=== PATIENT | female | born 1970 | race Two or more races ===

== ENCOUNTER 2017-12-10 00:03 | Emergency (ER) | payer OTHER ==
[~2017-12-10] VITALS: Ht 152.4 cm; Wt 61.2 kg
--- NOTE | 2017-12-10 00:38 | Emergency Room Report ---
History of Present Illness General Chief Complaint: Lower Extremity Injury Source: Patient Present Illness HPI At 10:30 tonight the patient ran her knee into the back of her patient's recliner chair while she was working. 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 She was trying to get to the call light. She heard a "crack" when she hit and had pain in her knee that extends up to her hip and also down into her ankle. She was able to limp. Her daughter brought her to the hospital. She is not taking any medication however placed an ice pack on to the knee. She denies previous injuries to her knees. Pain is rated at 10/10, sharp aching. Worse when she tries to bend the knee. No fevers, LOC, rashes, arthritis, dysuria, cough, chest pain, NVD. Allergies: Coded Allergies: PENICILLINS (Verified Allergy, Unknown, 12/10/17) Patient History Past Medical History: see triage record Social History: Denies: smoking, alcohol use Social History Narrative [employer] Last Menstrual Period: november 24 Now: No Reviewed Nursing Documentation: PMH: Agreed; PSxH: Agreed Nursing Documentation-PMH Past Medical History: No Stated History Review of Systems All Other Systems: negative except mentioned in HPI Physical Exam Vital Signs Date Time Temp Pulse Resp B/P (MAP) Pulse Ox O2 Delivery O2 Flow Rate FiO2 12/10/17 00:09 98.1 79 18 110/69 98 Room Air 98.1 Sp02 EP Interpretation: reviewed, normal General Appearance: well appearing, no apparent distress, GCS 15 Head: normocephalic, atraumatic Eyes: bilateral eye normal inspection, bilateral eye PERRL ENT: hearing grossly normal, normal voice Neck: full range of motion, supple Respiratory: chest non-tender, lungs clear, no respiratory distress, speaking full sentences Cardiovascular #1: regular rate, rhythm Cardiovascular #2: 2+ radial (L), 2+ dorsalis pedis (L) Gastrointestinal: normal inspection, non tender Musculoskeletal: back normal, pelvis stable, other - bilateral knee lateral ligament laxity (same both sides). Unable to flex knee due to pain. Able to lift foot. No significant effusion. TTP patella. Also posterior thigh tenderness. PROM of hip without pain. No drawer, but anxious with exam. Neurologic: alert, motor strength/tone normal, sensory intact, speech normal Psychiatric: anxious Skin: no rash Medical Decision Making Diagnostic Impression: Primary Impression: Contusion of left knee Qualified Codes: S80.02XA - Contusion of left knee, initial encounter ER Course Patient presents after trauma to L knee. DDx: fx, contusion, sprain. Pain radiates throughout leg and to hip, though clinically, hip not fractured. Xrays and analgesia indicated. Xrays without fracture. Immobilizer placed by tech. Position excellent, though initially too tight and adjusted by me. Neurovasc normal post placement as examined by me. Patient reluctant to weight bear or ambulate. Able to ambulate with assistance from daughter. Patient stable for outpatient observation and treatment. Other X-Ray Diagnostic Results Other X-Ray Diagnostic Results : X-Ray ordered: L knee # of Views/Limited Vs Complete: 3 View Indication: Pain EP Interpretation: Yes Interpretation: no dislocation, no soft tissue swelling, no fractures Impression: No acute disease Electronically Signed by: Rocael Cantu MD Last Vital Signs Date Time Temp Pulse Resp B/P (MAP) Pulse Ox O2 Delivery O2 Flow Rate FiO2 12/10/17 01:55 98.1 18 110/69 98 Room Air 208.6 12/10/17 00:09 79 Status: improved Disposition: HOME, SELF-CARE Condition: Improved Scripts Methocarbamol* (ROBAXIN*) 500 Mg Tablet 500 MG PO TID, #10 TAB 0 Refills Prov: Rocael Cantu M.D. 12/10/17 Acetaminophen (Tylenol) 325 Mg Tablet 650 MG ORAL Q6H PRN for Prn Pain/Headache/Temp > 101, #30 TAB 0 Refills Prov: Rocael Cantu M.D. 12/10/17 Tramadol Hcl* (ULTRAM*) 50 Mg Tablet 50 MG ORAL Q6H PRN for For Pain, #16 TAB 0 Refills Prov: Rocael Cantu M.D. 12/10/17 Rocael Cantu M.D. Dec 10, 2017 00:38
[2017-12-10] MEDS ORDERED: traMADol 50mg tab ORAL ONE (00:45)
[2017-12-10 01:55] VITALS: BP 110/69
[2017-12-10] MEDS ORDERED: TYLENOL325 MG ORAL (01:59)
[2017-12-10] MEDS ORDERED: ROBAXIN500 MG PO (01:59)
[2017-12-10] MEDS ORDERED: TRAMADOL HCL50 MG ORAL (01:59)
--- NOTE | 2017-12-10 09:51 | Diagnostic Imaging Report ---
Indications: Trauma, twisted knee one day ago Technique: Three views of the left knee Comparison: None Findings: No acute fractures. No dislocations. Joint spaces are preserved. No radiopaque foreign body. Normal mineralization. Impression: No acute process This agrees with the preliminary interpretation provided by the emergency room physician
== END 2017-12-10 02:04 | disposition home or self-care (01) ==
LOC: EMR 00:20
DX: S80.02XA Contusion of left knee, initial encounter (principal); W22.03XA Walked into furniture, initial encounter; Y92.89 Other specified places as the place of occurrence of the external cause; Y99.0 Civilian activity done for income or pay; Z88.0 Allergy status to penicillin
CPT/HCPCS: 99284